=== PATIENT | male | born 1965 | race Caucasian/White ===

== ENCOUNTER → 2020-06-20 07:57 | Outpatient (CLI) | payer OTHER, SELFPAY ==
--- NOTE | ~2020-06-20 | XR_ITS ---
XR hand LT min 3V DATE: 06/20/2020 08:58 INDICATION: Bilateral hand pain TECHNIQUE: 3 views of the left hand COMPARISON: None FINDINGS: There is spurring at the interphalangeal joint of the first digit consistent with moderate osteoarthritis. There is mild spurring at the proximal interphalangeal joint of the third digit. No fracture, dislocation, periosteal reaction or bone destruction, erosive change or chondrocalcinosi s. IMPRESSION: Osteoarthritis proximal interphalangeal joint first digit and proximal interphalangeal carmelo int of third digit Reviewed, dictated and finalized at location A. [facility] IMPRESSION: Osteoarthritis proximal interphalangeal joint first digit and proxi mal interphalangeal joint of third digit
--- NOTE | ~2020-06-20 | MR_ITS ---
EXAMINATION: MR shoulder LT wo con DATE: 06/20/2020 08:42 INDICATION: Chronic left shoulder pain TECHNIQUE: Magnetic resonance imaging (MRI) of the left shoulder was performed without intravenous co ntrast. Sequences included axial PD-weighted FS FSE, coronal oblique PD-weighted FS FSE, coronal obli que T2-weighted FS FSE, sagittal PD-weighted FS FSE, and sagittal T1-weighted SE. COMPARISON: None. FINDINGS: Coracoacromial arch: The acromion undersurface is minimally curved in morphology (type I-II). The coracoacromial ligament is normal. Moderate acromioclavicular osteoarthritis. Rotator cuff: Mild supraspinatus and infraspinatus tendinopathy without discrete tear. The teres minor and subscapu rain tendons are normal. Moderate fatty atrophy of the teres minor muscle belly. Remainder of the mu sculature of the rotator cuff and shoulder girdle appears normal. Biceps tendon, glenoid labrum and glenohumeral cartilage: Long head of the biceps tendon is normal. There is a linear high signal intensity labral tear extendi ng from the 11:00 to the 8:00 position of the posterior superior to posterior glenoid labrum. There a re multiple tiny paralabral cysts along the periphery of the posterior superior glenoid labrum. The p osterior inferior to inferior glenoid labrum appears diminutive suggesting chronic degeneration. Phil ohumeral cartilage is normal. Fluid: Physiologic amount of fluid in the glenohumeral joint and biceps tendon sheath. No loose osteochondra l bodies. Small amount of fluid in the subacromial/subdeltoid bursa consistent with mild bursitis. Bones: Normal marrow signal with no edema, fracture or abnormal marrow replacing process. There is fatty mar row beginning to replace what appears to be moderate sized region of chronic cystic change along the middle and posterior facets of the greater tuberosity. IMPRESSION: 1. Labral tear at the posterior superior to posterior labrum with associated para labral cyst. Small posterior inferior and inferior labrum which could represent additional degenerative tearing. 2. Mild supraspinatus and infraspinatus tendinopathy without discrete tear. 3. Moderate fatty atrophy of the teres minor with intact appearing tendon which is of indeterminate e tiology. No impinging lesion at the quadrilateral space/course of the axillary nerve. 4. Moderate acromioclavicular osteoarthritis. 5. Mild subacromial/subdeltoid bursitis. Reviewed, dictated and finalized at location A. [facility] [employer] IMPRESSION: 1. Labral tear at the posterior superior to posterior labrum with associated pa ra labral cyst. Small posterior inferior and inferior labrum which could repres ent additional degenerative tearing. 2. Mild supraspinatus and infraspinatus tendinopathy without discrete tear. 3. Moderate fatty atrophy of the teres minor with intact appearing tendon which is of indeterminate etiology. No impinging lesion at the quadrilateral space/c ourse of the axillary nerve. 4. Moderate acromioclavicular osteoarthritis. 5. Mild subacromial/subdeltoid bursitis.
--- NOTE | ~2020-06-20 | XR_ITS ---
XR hand RT min 3V DATE: 06/20/2020 08:58 INDICATION: Bilateral hand pain TECHNIQUE: 4 views COMPARISON: 07/15/2017 right hand FINDINGS: There is chronic flexion contracture deformity of the fifth digit, also present on 8. There is prominent spurring at the interphalangeal joint of the first digit and at the proximal inter phalangeal joint of the third digit and to a lesser extent the proximal interphalangeal joints of the second and fourth digits. No fracture, dislocation, periosteal reaction or bone destruction, erosion or chondrocalcinosis is de tected. IMPRESSION: Chronic flexion contracture deformity of the fifth digit Osteoarthritis at multiple interphalangeal joints Reviewed, dictated and finalized at location A. HAND
== END ==
PROVIDERS: Visit Provider Physician Assistant
DX: M75.52 Bursitis of left shoulder (principal); M19.012 Primary osteoarthritis, left shoulder; S43.432A Superior glenoid labrum lesion of left shoulder, initial encounter; X58.XXXA Exposure to other specified factors, initial encounter; M19.041 Primary osteoarthritis, right hand; M19.042 Primary osteoarthritis, left hand
CPT/HCPCS: 73130; 73221

== ENCOUNTER 2021-04-27 13:28 | Outpatient (CLI) | payer OTHER, SELFPAY ==
--- NOTE | 2021-04-30 15:43 | WPDSIXMINUTE ---
Six Minute Walk Procedure Procedure Performed Pulmonary Stress Test (6 min walk) Six Minute Walk This is a 6 minute walk test. The test was performed and interpreted in accordance with the 2014 ERS/ATS task force guidelines. Findings: The patient's resting room air oxygen saturation measured by pulse oximetry was 93% and heart rate was 97 bpm. Patient ambulated for 427 meters and oxygen saturation remained 90 to 94%. Heart rate at the end of the study was 107 bpm. The patient did not qualify for supplemental oxygen at rest or with ambulation. There are no prior studies for comparison.
--- NOTE | 2021-04-30 15:45 | WPDPFTINT ---
PFT Procedure Performed PFT Procedure Performed Plethysmography (Lung Vol) Diffusing Cap (DLCO) Flow Vol Loop Spirometry w/o Bronchodil PFT Interpretation This is a pulmonary function test with spirometry, plethysmography and diffusing capacity. The test was performed and results interpreted in accordance with the 2019 and 2005 ATS/ERS Task Force guidelines respectively using the Global Lung Function Initiative-2012 reference equations. Patient demonstrated good effort and cooperation. Reproducibility criteria were met. The quality of the spirometry maneuver was Grade B. Findings: Spirometry: the contour the inspiratory and expiratory flow tracing are normal. The FVC is 3.89 L, 83% predicted. The FEV1 is 3.08 L, 84% predicted. The FEV1: FVC ratio 79%. Plethysmography: The total lung capacity is 6.16 L, 91% predicted. Functional residual capacity is 3.15 L, 91% predicted. The residual volume is 2.23 L, 109% predicted. Diffusing capacity: The absolute diffusion capacity is 28.6, 97% predicted. The diffusing capacity corrected for alveolar volume is 5.85, 130% predicted. Impression: The spirometry is normal without evidence of an obstructive abnormality. The lung volumes are normal. The absolute diffusing capacity is normal and increased when corrected for alveolar volume. There are no prior studies for comparison
== END 2021-04-27 13:29 | disposition home or self-care (01) ==
DX: J45.51 Severe persistent asthma with (acute) exacerbation (principal); R06.00 Dyspnea, unspecified; R06.89 Other abnormalities of breathing
CPT/HCPCS: 94375; 94618; 94726; 94729